=== PATIENT | female | born 1965 | race African-American/Black ===

== ENCOUNTER 2016-12-07 09:18 | Emergency (ER) ==
[2016-12-07 09:53] LABS: MANUAL DIFF NEEDED? NO; URINE CULTURE PL NEEDED? NO; URINE SOURCE VOIDED
[2016-12-07 09:54] LABS: BASO% 0.1 % (0.0-0.8); EOS# 0.02 X1000 (0.0-0.7); EOS% 0.2 % (0.0-10.0); HEMOGLOBIN 12.9 g/dL (12.0-16.0); IMM GRAN# 0.03 X1000 (0.0-0.04); IMM GRAN% 0.3 % (0.0-0.5); LYMPH# 1.53 X1000 (1.2-3.4); LYMPH% 14.1 % (20.5-51.1); MCH 26.6 PG (27-31); MCHC 33.1 g/dL (33-37); MCV 80.4 FL (81-99); MONO# 0.36 X1000 (0.11-0.59); MONO% 3.3 % (1.7-9.3); MPV 9.4 FL (7.4-10.4); PLT 267 X1000 (130-400); RBC 4.85 XMIL (4.2-5.4)
[2016-12-07 10:08] LABS: UR AMPHETAMINES QUAL NONE DETECTED (NONE DETECT); UR BARBITUATES QUAL NONE DETECTED (NONE DETECT); UR BENZODIAZEPIN QUAL NONE DETECTED (NONE DETECT); UR CANNABINOIDS QUAL NONE DETECTED (NONE DETECT); UR COCAINE QUAL NONE DETECTED (NONE DETECT); UR MDMA QUAL NONE DETECTED (NONE DETECT); UR METHADONE QUAL NONE DETECTED (NONE DETECT); UR METHAMPHETAMINE QUAL NONE DETECTED (NONE DETECT); UR OPIATES QUAL NONE DETECTED (NONE DETECT); UR OXYCODONE QUAL NONE DETECTED (NONE DETECT); UR PCP QUAL NONE DETECTED (NONE DETECT); UR TCA QUAL NONE DETECTED (NONE DETECT)
[2016-12-07 10:09] LABS: BILIRUBIN URINE NEGATIVE (NEGATIVE); BLOOD URINE 2+ (NEGATIVE); CLARITY SL. CLOUDY (CLEAR); COLOR YELLOW; GLUCOSE URINE NEGATIVE (NEGATIVE); LEUKOCYTES URINE NEGATIVE (NEGATIVE); NITRITE URINE NEGATIVE (NEGATIVE); SP GRAVITY URINE 1.025; UROBILINOGEN URINE NORMAL
--- NOTE | 2016-12-07 10:11 | PROVIDER DOCUMENTATION ---
HPI-Psychological Disorder - General Source: patient, family (sister) - History of Present Illness-Psych Onset/Duration: reports: unsure Timing: reports: still present Severity: reports: moderate Situational problems related to:: reports: N/A Psychiatric Complaints: reports: depressed, hallucinating, paranoid, restlessness Previous psych related hospitalizations?: Yes Patient arrived by:: private car Similar Symptoms Previously?: Yes Recently seen or treated by another doctor?: No <Elda Alva - Last Filed: 12/07/16 10:06> <Shawn Kendrick - Last Filed: 12/07/16 12:38> - General Chief Complaint: Psych Stated Complaint: PSYCH Time Seen by Provider: 12/07/16 10:06 Allergies/Adverse Reactions: Patient Allergies Allergy/AdvReac Type Severity Reaction Status Date / Time No Known Allergies Allergy Verified 12/07/16 09:35 Home Medications: Home Medication List Medication Instructions Recorded Confirmed Last Taken Type Fluoxetine [Prozac] 20 mg PO DAILY 12/07/16 12/07/16 Unknown History Fluoxetine [Prozac] 20 mg PO DAILY #20 capsule 12/07/16 Unknown Rx Glipizide E.r. [Glucotrol Xl] 2.5 mg PO DAILY 12/07/16 12/07/16 Unknown History Levothyroxine [Synthroid] 100 microgm PO DAILY #30 tablet 12/07/16 Unknown Rx Metformin [Glucophage] 500 mg PO DAILY 12/07/16 12/07/16 Unknown History SIMVAstatin [Zocor] 10 mg PO DAILY 12/07/16 12/07/16 Unknown History Trazodone HCl 150 mg PO HS #30 tablet 12/07/16 Unknown Rx Triamterene/Hydrochlorothiazid 1 each PO DAILY #30 capsule 12/07/16 Unknown Rx [Dyazide 37.5-25 Capsule] Triamterene/Hydrochlorothiazid 1 cap PO DAILY 12/07/16 12/07/16 Unknown History [Triamterene-Hctz 37.5-25 mg Cp] - History of Present Illness-Psych Nature of Presenting Problem: Pt is 51 y/o F presents to the ED with hallucinations. Pt states she has been out of her meds for a long time. Pt's sister states she use to go to a clinic but the doctor that ran the clinic left. Pt states she can smell chemicals all over her and just wants to be clean. Pt denies SI or HI. Pt states she feels like someone is following her. (Elda Alva) Review of Systems - Adult - REVIEW OF SYSTEMS - ADULT Constitutional: denies: chills, fever Eyes: denies: blurred vision, double vision Ears, Nose, Mouth & Throat: denies: ear pain, nose pain, throat pain Cardiovascular: denies: chest pain, heart murmur, irregular heart rate Respiratory: denies: cough, shortness of breath, wheezing Gastrointestinal: denies: abdominal pain, diarrhea, nausea, vomiting Genitourinary: denies: dysuria, hematuria Musculoskeletal: denies: bone pain, joint pain, neck pain Integumentary: denies: hives, itching Neurological: denies: dizziness/vertigo, headache/migraines Psychiatric: reports: anxiety, depression, other (hallucinations) Endocrine: reports: no symptoms reported Hematologic/Lymphatic: reports: no symptoms reported Allergic/Immunologic: reports: no symptoms reported All Other Systems: Reviewed and Negative <Elda Alva - Last Filed: 12/07/16 10:06> Past History - Adult - PAST MEDICAL HISTORY-ADULT Review of Records: reports: Nursing Assessment Review, Medications Reviewed, Social history reviewed & non-contributory. Major Childhood Illnesses: reports: denies history Cardiovascular: reports: HTN, hyperlipidemia Respiratory: reports: denies history Gastrointestinal: reports: denies history Obstetrical/Gynecological: reports: denies history Genitourinary: reports: denies history Musculoskeletal: reports: denies history Neurological: reports: denies history Psychiatric: reports: schizophrenia Endocrine/Immune: reports: Diabetes Other Conditions: reports: denies history - PRIOR SURGERIES/PROCEDURES Surgical/Procedure History: reports: reviewed, not pertinent - IMMUNIZATION STATUS Childhood Immunizations: See Nurse Assessment Flu Vaccine: See Nurse Assessment - FAMILY HISTORY Family History: reviewed, not pertinent - SOCIAL HISTORY Smoking: denies Substance Use: denies Living Situation: family <Elda Alva - Last Filed: 12/07/16 10:06> Physical Exam-Psych Focus - Physical Exam-Psych Initial Vital Signs Reviewed: Yes Appearance: neat, no apparent distress, no memory impairment, alert, anxious Neurological: alert, oriented x 3, anxious Behavior/Eye Contact/Speech: cooperative, avoids eye contact, decreased rate of speech Thoughts/Hallucinations: paranoid, visual hallucinations HENMT: normocephalic/atraumatic, moist mucous membranes, normal ENT inspection, TMs normal, pharynx normal Neck: non-tender, full range of motion, supple, normal inspection Respiratory: chest non-tender, lungs clear, normal breath sounds, no pleuratic chest pain, no respiratory distress, no accessory muscle use Cardiovascular: normal peripheral pulses, regular rate, rhythm, no edema, no gallop, no JVD, no murmur Abdominal Exam: normal bowel sounds, non tender, soft, no organomegaly, no pulsatile mass Lymphatic: no adenopathy Back Exam: normal inspection, no CVA tenderness, no vertebral tenderness Extremity: normal range of motion, non-tender, normal gait, normal inspection, no pedal edema, no calf tenderness, normal capillary refill Integumentary: normal color, normal turgor, warm/dry <Elda Alva - Last Filed: 12/07/16 10:06> Progress <Elda Alva - Last Filed: 12/07/16 10:06> <Shawn Kendrick - Last Filed: 12/07/16 12:38> - PLAN OF CARE/RESULTS Progress/Plan/Lab Results: Laboratory Tests 12/07/16 12/07/16 12/07/16 09:45 09:45 09:45 WBC 10.84 H RBC 4.85 Hgb 12.9 Hct 39.0 MCV 80.4 L MCH 26.6 L MCHC 33.1 RDW Std Deviation 14.5 Plt Count 267 MPV 9.4 Immature Gran % (Auto) 0.3 Neut % (Auto) 82.0 H Lymph % (Auto) 14.1 L [place] % (Auto) 3.3 Eos % (Auto) 0.2 Baso % (Auto) 0.1 Immature Gran # (Auto) 0.03 Neut # (Auto) 8.89 H Lymph # (Auto) 1.53 [place] # (Auto) 0.36 Eos # (Auto) 0.02 Baso # (Auto) 0.01 Urine Source VOIDED Urine Color YELLOW Urine Clarity SL. CLOUDY A Urine pH 5.0 Ur Specific Rock 1.025 Urine Protein 3+(500 mg/dL) A Urine Ketones NEGATIVE Urine Blood 2+ A Urine Nitrite NEGATIVE Urine Bilirubin NEGATIVE Urine Urobilinogen NORMAL Urine WBC NEGATIVE Urine Glucose NEGATIVE Urine Opiates Screen NONE DETECTED Ur Oxycodone Screen NONE DETECTED Urine Methadone Screen NONE DETECTED Ur Barbituates Screen NONE DETECTED Ur Tricyclics Screen NONE DETECTED Ur Phencyclidine Scrn NONE DETECTED Ur Amphetamines Screen NONE DETECTED U Methamphetamines Scrn NONE DETECTED Urine MDMA Screen NONE DETECTED U Benzodiazepines Scrn NONE DETECTED Urine Cocaine Screen NONE DETECTED U Cannabinoids Screen NONE DETECTED Orders Category Date Time Status ALCOHOL BLOOD Stat Lab 12/07/16 09:45 Received CBC WITH ELECTRONIC DIFF [HEME] Stat Lab 12/07/16 09:45 Completed COMPREHENSIVE METABOLIC PANEL [CHEM] Stat Lab 12/07/16 09:45 Received FREE T4 Stat Lab 12/07/16 09:45 Received TSH Stat Lab 12/07/16 09:[address] W/POSS RFLX CULT [URINALYSIS] Stat Lab 12/07/16 09:45 Results [address] S[address]EN [address] Stat Lab 12/07/16 09:45 Completed VITAMIN B12 Stat Lab 12/07/16 09:45 Received Vital Signs - 24 hr 12/07/16 09:29 Temperature 98.9 F Pulse Rate 96 H Respiratory 22 Rate Blood Pressure 174/96 O2 Sat by Pulse 98 Oximetry (Elda Alva) Departure <Elda Alva - Last Filed: 12/07/16 10:06> - Departure Time of Disposition Order: 12:28 Certified Medical Emergency: Emergent <Shawn Kendrick - Last Filed: 12/07/16 12:38> - Departure DIAGNOSIS: Anxiety Hypothyroidism Qualifiers: Hypothyroidism type: acquired Qualified Code(s): E03.9 - Hypothyroidism, unspecified Insomnia Qualifiers: Insomnia type: unspecified Qualified Code(s): G47.00 - Insomnia, unspecified Depression Qualifiers: Depression Type: unspecified Qualified Code(s): F32.9 - Major depressive disorder, single episode, unspecified Disposition: HOME 01 Condition: Stable Additional Instructions: follow up mental health ED Follow Up Instructions: You have been treated by a care provider in the Emergency Department. These instructions are being provided to you so you can have an understanding of how to care for yourself upon discharge. Upon discharge from the Emergency Department, you are responsible for making arrangements for follow-up care by a physician of your choice. Take all prescribed medications as directed. Return to the Emergency Department immediately for any new or worsening symptoms. You may call the Physician Referral phone number at [phone] to obtain a list of Physicians who are taking new patients. Prescriptions: Fluoxetine [Prozac] 20 mg PO DAILY #20 capsule Levothyroxine [Synthroid] 100 microgm PO DAILY #30 tablet Trazodone HCl 150 mg PO HS #30 tablet Triamterene/Hydrochlorothiazid [Dyazide 37.5-25 Capsule] 1 each PO DAILY #30 capsule Referrals: None,PCP [Primary Care Provider] - Attestation - Scribe Verification/Attestation Scribe:: Elda Alva Acting as Scribe for:: Shawn Kendrick Scribe documention review:: This chart was documented by a scribe and accurately reflects the service the provider performed and the decisions made by the provider. <Elda Alva - Last Filed: 12/07/16 10:06> Physician Attestation
[2016-12-07 10:20] LABS: URINE EPITHELIAL CELLS >10 /HPF (<10); URINE WBC <10 /HPF (<10)
[2016-12-07 10:41] LABS: ALBUMIN 4.7 g/dL (3.5-5.0); CALCIUM 9.6 mg/dL (8.8-10.2); POTASSIUM 3.4 mmol/L (3.5-5.1); TOTAL BILIRUBIN 0.4 mg/dL (0.20-1.00); TOTAL PROTEIN 8.1 g/dL (6.3-8.3)
[2016-12-07 11:05] LABS: FREE T4 0.48 ng/dL (0.93-1.70)
[2016-12-07 13:07] VITALS: BP 157/084
== END 2016-12-07 13:06 | disposition home or self-care (01) ==
LOC: P.ED 09:18
DX: E03.9 Hypothyroidism, unspecified (principal); F41.9 Anxiety disorder, unspecified; F32.9 Major depressive disorder, single episode, unspecified; G47.00 Insomnia, unspecified; R45.1 Restlessness and agitation; R44.1 Visual hallucinations; I10 Essential (primary) hypertension; E78.5 Hyperlipidemia, unspecified; Z79.899 Other long term (current) drug therapy; E11.9 Type 2 diabetes mellitus without complications
CPT/HCPCS: 80053; 80305; 81001; 82607; 84439; 84443; 85025; 99284; G0480; 80320